=== PATIENT | female | born 1945 | race African-American/Black ===

== ENCOUNTER 2016-09-14 19:03 | Emergency (ER) | payer OTHER ==
[~2016-09-14 19:03] MED LIST: *DENIES; *UNABLE3; ASA5GR PO; ASAB PO; COREG3 PO; COREG6 PO; DEPO-TESTOS200 MG/ML SC; EZFE 200200 MG PO; FLOMAX4 PO; HALF81 PO; HCTZ25B PO; HYDROCHLOROT12.5 MG PO; KLOR-CON M2020 MEQ PO; LEVAQUIN750 MG PO; LIPITOR40 PO; LIPITOR80 MG PO; LISINOPRIL40 MG PO; MICROZIDE PO; MULTIPLE VIT PO; NICODERM C21 MG/241 TOP; NORV10 PO; PCET PO; PLAVIX PO; PLETAL100 PO; PRIN20 PO; PROTONIX PO; TOPXL50 PO; ZESTRIL20 MG PO
== END 2016-09-14 22:25 | disposition home or self-care (01) ==
LOC: ER 19:03
DX: H10.9 Unspecified conjunctivitis (principal); H16.001 Unspecified corneal ulcer, right eye; I25.2 Old myocardial infarction; I10 Essential (primary) hypertension; F17.200 Nicotine dependence, unspecified, uncomplicated; Z86.73 Personal history of transient ischemic attack (TIA), and cerebral infarction without residual deficits; Z79.82 Long term (current) use of aspirin; Z79.899 Other long term (current) drug therapy
CPT/HCPCS: 99283; A9270-GY